=== PATIENT | female | born 2000 | race African-American/Black ===

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

== ENCOUNTER 2023-05-25 17:43 | Emergency (ER) | payer SELFPAY ==
[~2023-05-25] VITALS: Ht 172.7 cm; Wt 62.0 kg
[~2023-05-25 17:43] MED LIST: ALBU90AE IH; QVAR
[2023-05-25] MEDS ORDERED: PREDNISONE 20MG TABLET PO ONE (19:15)
[2023-05-25] MEDS ORDERED: IPRATROPIUM/ALBUTEROL 0.5-3(2.5)MG/3ML NEB HHN ONE (19:15)
[2023-05-25 19:35] LABS: COLOR URINE YELLOW (YELLOW)
[2023-05-25 19:36] LABS: CLARITY URINE SLIGHT CLOUDY (CLEAR); GLUCOSE URINE NEGATIVE (NEGATIVE); KETONES URINE NEGATIVE (NEGATIVE); LEUKOCYTE ESTERASE URINE NEGATIVE (NEGATIVE); NITRITE URINE NEGATIVE (NEGATIVE); OCCULT BLOOD URINE 2+ (NEGATIVE); PROTEIN URINE NEGATIVE (NEGATIVE); SPECIFIC GRAVITY URINE 1.025 (1.005-1.030); UROBILINOGEN URINE 0.2 E.U./dL (0.2-1.0)
[2023-05-25 19:45] LABS: BACTERIA URINE 2+; SQUAMOUS EPITHELIAL CELL URINE 2+ /lpf (RARE/1+)
[2023-05-25 19:46] LABS: WBC URINE 0-2 /hpf (0-2)
[2023-05-25 20:36] VITALS: PULSE 87; RESP 18; O2SAT 97
[2023-05-25] MEDS ORDERED: P50 MT (21:14)
[2023-05-25] MEDS ORDERED: ALBU6.7H15 INH (21:14)
[2023-05-25] MEDS ORDERED: ALBU2.5V13 NEB (21:14)
[2023-05-25 21:20] VITALS: BP 112/78; PULSE 92; RESP 16; TEMP 97.7
== END 2023-05-25 21:31 | disposition home or self-care (01) ==
LOC: ER 17:43
DX: J45.901 Unspecified asthma with (acute) exacerbation (principal)
CPT/HCPCS: 81003; 81025; 94640; 99283; J7512; Z7610 ×3

== ENCOUNTER 2024-03-30 19:16 | Emergency (ER) | payer SELFPAY ==
[~2024-03-30] VITALS: Ht 185.4 cm; Wt 74.6 kg
[~2024-03-30 19:16] MED LIST changes: +ALBU2.5V13 NEB; +ALBU6.7H15 INH; +P50 MT
[2024-03-30] MEDS: PREDNISONE 20MG TABLET PO STA (20:29)
[2024-03-30 21:08] VITALS: PULSE 72; RESP 20; O2SAT 97
[2024-03-30] MEDS: IPRATROPIUM BROMIDE (0.02%) 0.5MG/2.5ML NEB HHN STA (21:08)
[2024-03-30] MEDS: ALBUTEROL (0.083%) 2.5MG/3ML NEB HHN STA (22:10)
[2024-03-30] MEDS: IBUPROFEN 600MG TABLET PO ONE (22:41)
[2024-03-30] MEDS ORDERED: TAM75 MT (23:33)
[2024-03-30] MEDS ORDERED: P50 MT (23:34)
[2024-03-30] MEDS ORDERED: ALBU18HF2 IH (23:34)
[2024-03-30] MEDS ORDERED: KETO10TA2 MT (23:35)
[2024-03-31 00:03] VITALS: BP 106/64; PULSE 67; RESP 18; TEMP 36.89184; O2SAT 98
== END 2024-03-31 00:16 | disposition home or self-care (01) ==
LOC: ER 19:16
DX: J11.1 Influenza due to unidentified influenza virus with other respiratory manifestations (principal); J45.909 Unspecified asthma, uncomplicated; Z79.51 Long term (current) use of inhaled steroids
CPT/HCPCS: 87804 ×2; 71045; 94640; 99285; J7512; Z7610 ×2